=== PATIENT | male | born 1965 | race Caucasian/White ===

== ENCOUNTER 2024-11-16 10:21 | Emergency (ER) | payer BC, SELFPAY ==
[2024-11-16 10:34] VITALS: BP 132/93; PULSE 91; RESP 16; TEMP 36.4; O2SAT 96
--- NOTE | 2024-11-16 10:50 | ED_ITS ---
HPI - Anxiety General Chief Complaint: Anxiety Stated Complaint: ANXIETY Time Seen by Provider: 11/16/24 10:38 Source: patient and RN notes reviewed Mode of arrival: ambulatory Limitations: no limitations History of Present Illness HPI narrative: Patient presents today with a 2 day history of feeling anxious, jittery, claustrophobic, with decreased sleep and appetite. He does report increased stress recently, some at work, and some personal. Also reports some panic last weekend when part of his truck broke at the [employer]. Denies chest pain, shortness of breath. No new medications or supplements. He has not been to his PCP in several years. Denies any cardiac history. Denies history of anxiety or depression. Has been pacing this morning at work, could not stand still while working and decided to come in for evaluation. Related Data Allergies Allergy/AdvReac Type Severity Reaction Status Date / Time No Known Allergies Allergy Verified 11/16/24 10:37 [facility] Social History Social History Substance use type: does not use Comments At time of signature, I have reviewed and agree with nursing past medical, shelby gical, social and family history unless otherwise noted. Please see nursing chart for further information. There is no relevant family history pertinent to the presenting complaint Exam Narrative: GENERAL: Well-appearing, well-nourished HEAD: Normocephalic, atraumatic. EYES: EOMI. No redness or drainage. Conjunctivae normal. ENT: Mucous membranes pink and moist. NECK: Normal AROM. CHEST: No respiratory distress. Clear to auscultation. HEART: Regular rate and rhythm. No murmur appreciated. Normal peripheral pulses. EXTREMITIES: Normal range of motion. No edema. SKIN: Warm, dry, no rash. Capillary refill normal. Normal skin turgor. NEURO: No focal deficits. Alert and oriented x3. Gait steady. PSYCH: Anxious, pacing in exam room Course Course Level of Care: Express Care Visit Vital Signs Vital signs: Vital Signs Temperature 97.6 F 11/16/24 10:34 Pulse Rate 91 11/16/24 10:34 Respiratory Rate 16 11/16/24 10:34 Blood Pressure 132/93 H 11/16/24 10:34 Pulse Oximetry 96 11/16/24 10:34 Temperature 97.6 F 11/16/24 10:34 Pulse Rate 91 11/16/24 10:34 Respiratory Rate 16 11/16/24 10:34 Blood Pressure 132/93 H 11/16/24 10:34 Pulse Oximetry 96 11/16/24 10:34 Reviewed MDM - Anxiety MDM Narrative Medical decision making narrative: 58-year-old male patient with no medical history presents today complaining anxiety, increased stress, decreased appetite and sleep x2 days. Patient believes much of his symptoms are situational, both work and personal. No OTC treatment prior to arrival. He has not seen his PCP in several years. Vital signs stable. Exam benign aside from patient pacing with anxious demeanor. Will prescribe some hydroxyzine. Strongly recommend patient call and Make an appointment with his PCP for further evaluation. Patient agrees with plan. Anticipatory guidance given. Differential Diagnosis Differential diagnosis: Likely acute anxiety and other (Claustrophobia, stress) Critical Care Time Critical Care Time Critical Care Time: No Discharge Plan Discharge Clinical Impression: Acute anxiety Patient Disposition: Home Condition: Stable Instructions: Anxiety (ED) Additional Instructions: Please take the hydroxyzine as prescribed. Do not drive within 6 hours of taking the hydroxyzine as it can make you drowsy. Do not take any additional Benadryl or other antihistamines while you are taking the hydroxyzine. Follow- up with a PCP as soon as possible for further evaluation and treatment. Your blood pressure was elevated above 120/80 today at Urgent Care. This puts y ou above the threshold for follow up. Please schedule a followup visit with your personal physician as soon as possible, for further evaluation and treatment. Even blood pressure exceeding 120/80 may indicate pre-hypertension. Patient Language: Tu[place] Prescriptions: New hydroxyzine HCl 50 mg tablet 50 mg PO QID PRN (Reason: anxiety) Qty: 30 0RF Follow-up/Referrals: Karsten,Daiana [Other] Time of Disposition: 10:48
== END 2024-11-16 10:55 | disposition home or self-care (01) ==
PROVIDERS: Emergency Provider Nurse Practitioner
DX: F41.9 Anxiety disorder, unspecified (principal)
CPT/HCPCS: 99203; G0463